=== PATIENT | female | born 1940 | race Caucasian/White ===

== ENCOUNTER 2017-04-01 11:22 | Inpatient (IN) | payer MEDICARE ==
[~2017-04-01] VITALS: Ht 162.6 cm; Wt 62.2 kg
[~2017-04-01 11:22] MED LIST: CALC-881 PO; CHOL100094 PO; DRY EYE BOTH_EYES; FOLI-89 PO; GLUC-180 PO; METR45GE11 TOP; TAMO20TA4 PO
[2017-04-01 11:32] VITALS: BP 132/50; PULSE 82; RESP 23; O2SAT 97
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
--- NOTE | 2017-04-01 12:14 | DRSVH ---
PROCEDURE: X-RAY CHEST ONE VIEW, PORTABLE ([id number]) INDICATIONS: CHEST PAIN TECHNIQUE: One view of the chest was acquired. COMPARISON: None. FINDINGS: Surgical changes and devices: Bilateral peripherally calcified breast implants are present. Lungs and pleura: No definite pulmonary consolidation is evident. Interstitial prominence within the infrahilar regions may be exaggerated by overlying breast tissue. Mild scar versus atelectasis with in the costophrenic angles may be present bilaterally. Mediastinum: Mediastinal contours appear normal. Heart size is normal. Bones and chest wall: No suspicious bony lesions. Overlying soft tissues appear unremarkable. IMPRESSION: No definite pneumonia or overt heart failure. Infrahilar interstitial prominence probabl y is related to chronic lung changes or scarring. Dictated by: Fransisco Bui M.D. on 04/01/2017 at 10:51 Approved by: Fransisco Bui M.D. on 04/01/2017 at 11:10
[2017-04-01 12:17] LABS: BASOPHILS % (AUTO) 0.7 % (0-3); EOSINOPHILS % (AUTO) 0.9 % (0-5); MONOCYTES % (AUTO) 12.3 % (4-12); Mean Corpuscular Hemoglobin 33.4 pg (27.0-35.0); NEUTROPHILS % (AUTO) 63.8 % (40-74); Platelet Count 191 bil/L (150-400)
[2017-04-01 12:33] VITALS: BP 110/63; PULSE 79; RESP 12; O2SAT 96
[2017-04-01] MEDS ORDERED: GLUC100016 PO (12:41)
[2017-04-01] MEDS ORDERED: CA C1TAB83 PO (12:41)
[2017-04-01] MEDS ORDERED: TURM500C7 PO (12:41)
[2017-04-01] MEDS ORDERED: MULT1CAP33 PO (12:41)
[2017-04-01 12:42] LABS: TROPONIN T 0.01 ug/L (0.0-0.011)
[2017-04-01 12:53] LABS: Magnesium 1.9 mg/dL (1.6-2.6)
[2017-04-01] MEDS ORDERED: Alum-Mag Hydrox-Simeth 30 mL Suspension PO PRN (13:45)
[2017-04-01] MEDS ORDERED: Ondansetron 2 mg/mL 2 mL Inj IVPUSH PRN (13:45)
[2017-04-01] MEDS ORDERED: Polyethylene Glycol (PEG) 17 Gm Powder PO PRN (13:45)
--- NOTE | 2017-04-01 13:45 | DRSVH ---
PROCEDURE: US VENOUS LEG DUPLEX BILATERAL INDICATIONS: swelling ro DVT TECHNIQUE: Real-time imaging, as well as color and pulse Doppler interrogation, were performed of the deep veins of both legs from the inguinal ligament to the popliteal fossa. COMPARISON: None. FINDINGS: The deep veins are normally compressible, and free of intraluminal thrombus. Color and pu lse Doppler demonstrate normal phasic intravascular flow. There is normal augmentation response to d istal compression maneuver. IMPRESSION: No DVT in the lower extremities bilaterally. Dictated by: Migue Morales M.D. on 04/01/2017 at 13:43 Approved by: Migue Morales M.D. on 04/01/2017 at 13:43
--- NOTE | 2017-04-01 14:00 | NUR ---
Evaluation completed. Please go to "Notes" then click on "Assessments and Notes" (bottom left corner of screen). Then select appropriate discipline tab on top of screen.
--- NOTE | 2017-04-01 14:01 | DRSVH ---
PROCEDURE: CT BRAIN WITHOUT CONTRAST ([id number]) INDICATIONS: R arm numbness TECHNIQUE: Noncontrast 4.5 mm thick angled axial sections acquired from the foramen magnum to the vertex, with c oronal reformats. COMPARISON: None. FINDINGS: Image quality: Excellent. CSF spaces: Basal cisterns are patent. No extra-axial fluid collections. The ventricles are symmet evelyn in size and shape. Brain: No intracranial bleeds or masses. There is cerebral volume loss for age, with resultant vent ricular and sulcal prominence. There are periventricular and deep white matter chronic small vessel ischemic changes. There is intracranial internal carotid artery atherosclerosis. Skull and face: Calvarium and visualized facial bones appear intact, without suspicious lesions. Sinuses: Visualized sinuses and mastoids are clear. IMPRESSION: 1. No acute intracranial process. 2. Moderate atrophy and chronic microvascular ischemic changes. Dictated by: Dionna Cheng M.D. on 04/01/2017 at 13:59 Approved by: Dionna Cheng M.D. on 04/01/2017 at 14:00
--- NOTE | 2017-04-01 14:11 | PCM.HPMED ---
Subjective Date of Service April 01, 2017 Primary Provider: Admitting Physician: Primary Care Physician: Svetlana Boswell PA-C Attending Physician: Admit Status: From the Emergency Department Chief Complaint: R arm numbness History of Present Illness: 77 yo female with a sig hx of breast CA presenting to ER wiht c/o R arm numbness that recurred this AM. Also with cp htat began yesterday lasting approximately 15 min with reported some rapid heart beats last evening which awoke her and resolved with deep breathing but this AM began to feel some R arm numbness while driving. Also noted some lightheadeness but denies sob/f/c/ recent illness/sig anxiety/stress. no previous similar sx - denies acute weakness or hx of CVA. denies afib or other DVT/VTE hx. denies illicit drug use, current tobacco use. Family history significant for brother and mother with atrial fibrillation. Currently reports symptoms of numbness progressing to her right shoulder, no dysarthria noted In the ER, a CT was ordered, pts NIHSS score was found to be 1 Review of Systems: complete ROS unremarkable except as listed in HPI Allergies Coded Allergies: No Known Allergies (Verified Allergy, Unknown, 04/01/17) Home Medications Ca Carbonate/Vitamin D3/Vit K (Calcium + D Soft Chewable Tab) 1 Each Tab.chew 1 EACH PO DAILY Glucosamine Sulfate 2Kcl (Glucosamine) 1,000 Mg Tablet 1,000 MG PO DAILY Multivitamin (Multivitamins) 1 Each Capsule 1 EACH PO DAILY Tamoxifen Citrate (Tamoxifen Citrate) 20 Mg Tablet 20 MG PO DAILY Turmeric Root Extract (Turmeric) 500 Mg Capsule 500 MG PO DAILY PMH R Breast CA - T1N1M0 stage IIA invasive ductal CA - status post breast conservative surgery, adjuvant radiation therapy - completed in 2011 with no recurrence, on tamoxifen therapy Surgical History S /P right-sided breast conservative therapy Status post bilateral breast implants Hysterectomy 1974 History of cataract removal both eyes History of exploratory laparotomy with appendectomy at time of an ectopic Tonsillectomy Re-eval lipoma removal of the right arm Family History Brother and mother with history of atrial fibrillation No family history of diabetes, heart attacks Mother with CVA in late 80s Social History Hx Alcohol Use: Yes (2/DAY) Hx Substance Use: No Hx Tobacco Use: No (quit 11 years ago) Smoking Status: Former Smoker ( quit 2000) Exam Vital Signs Vital Sign - Last Date Time Temp Pulse Resp B/P Pulse Ox O2 Delivery O2 Flow Rate FiO2 04/01/17 12:33 79 12 110/63 96 Room Air 04/01/17 11:32 36.6 Exam Gen.: No acute distress, alert and oriented, pleasant HEENT: Normocephalic/atraumatic, pupils equal round react to light and accommodation,EOMI, Anicteric sclera, No mucosal ulcerations Neck: No JVD, lymphadenopathy, no thyromegaly Cardiovascular: No rubs clicks murmurs or gallops, regular rate Respiratory: Clear to auscultation bilaterally no wheezes rales or rhonchi, good historian effort GI: Soft, nontender to palpation no masses no hepatosplenomegaly noted no peritoneal signs or rebound tenderness. Extremities: No clubbing cyanosis or edema, warm, sensation intact Neurologic, muscle strength 5 out of 5 in upper and lower extremities bilaterally, creatinine nerves 2-12 grossly intact, DTRs 2+ at patellar and brachial radialis and bicipital, sensation decreased at right arm and right shoulder, normal speech Psych: Mood appropriate, affect appropriate, no tangential thought or speech Lab and Diagnostics Result Diagram: 04/01/17 1150 X-Rays, CTs and MRIs Chest x-ray IMPRESSION: No definite pneumonia or overt heart failure. Infrahilar interstitial prominence probably is related to chronic lung changes or scarring. Dictated by: Fransisco Bui M.D. on 04/01/2017 at 10:51 12-lead ECG Normal sinus rhythm, no acute ischemic changes, possible Q-wave in V1 and V2, normal intervals Cardiac Echo Impressions Echo pending Assessment & Plan 77-year-old female with history of ductal carcinoma breast cancer now in remission presenting with ongoing symptoms of acute CVA Acute CVA - sx have been present for >4.5 hrs -Echo -MRI with and without contrast -carotid doppler -Follow up CT from ER -Repeat EKG, check lipid profile/a1c -neuochecks -Admit to telemetry, monitor blood pressure - unlikely given low baseline blood pressure but allow permissive hypertension -Start atorvastatin 10mg and if CT head neg for ICH, start aspirin 324mg -PT/OT consulted for evaluation treatment Chronic medical conditions History of breast cancer status post lumpectomy and radiation, in remission -Consider repeat CT chest if not done recently for surveillance given above CVA -Continue tamoxifen Osteoarthritis-hold home glucosamine Pt verified desire for DNR status after discussion with pt/daughter Pain Evaluation: Adequate Pain Control GI Prophylaxis: Not indicated VTE Prophylaxis: Sub-Q Enoxaparin Resuscitation Status: DNR/DNI:Do Not Resuscitate/Intubate Time spent 40 minutes spent with evaluation and management including admission. Greater than 50% time was spent [id number] counseling Attending Statement observation admission status Chago Bhakta DO April 01, 2017 12:50
[2017-04-01 14:30] VITALS: BP 109/48; PULSE 91; RESP 18; O2SAT 99
[2017-04-01 15:25] VITALS: PULSE 89
--- NOTE | 2017-04-01 16:03 | NUR ---
Case Management: IMM explained to patient at 1550, all questions answered. Signed original placed in chart, copy given to patient. Jeanine Reeves RN
[2017-04-01 16:05] VITALS: BP 110/73; PULSE 69; RESP 16; O2SAT 96
--- NOTE | 2017-04-01 18:02 | NUR ---
Admit note- Received patient via w/c after CT scan. Patient is alert and oriented. Denies any further tingling or change in sensation in right arm. Steady gait. No neuro deficits noted. Tele-sinus rhythm. Oriented patient to room,call light, tele, etc.
--- NOTE | 2017-04-01 18:04 | DRSVH ---
PROCEDURE: MRI STROKE PROTOCOL ([id number]) Pre- and post-contrast brain MRI, non-contrast brain MR angiogram, pre- and postcontrast neck MR apurva ogram INDICATIONS: RUE numbness TECHNIQUE: Brain: Noncontrast axial T1 spin echo, axial T2 fast spin echo, sagittal and axial FLAIR, coronal T2 fast spin echo, axial gradient echo, axial diffusion and ADC through the brain. After the administr ation of contrast, axial 3D VIBE of the cranial vasculature and brain. Brain MRA: Non-contrast 3-D time of flight MR angiogram, with multiple nkutwgd-ktacdbyhh-npozeobvau (MIP) reformats performed. Neck MRA: Axial and sagittal TruFISP through the neck. Coronal dynamic MR angiogram during administ ration of contrast in the arterial and venous phases, with 3-dimenstional aeivzoy-bueitrebk-krczeinxq n (MIP) reformats constructed from subtraction images. COMPARISON: None. FINDINGS: Image quality: Excellent. BRAIN: CSF spaces: Ventricles are normal in size and shape. Basal cisterns are patent. No extra-axial flu id collections. Brain: No intracranial bleeds or mass effects. Dillon-white matter interface is normal. Diffusion we ighted images show no acute ischemic insults. Brainstem appears normal. Normal intravascular flow v oids are present. No abnormal intracranial enhancement. 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 Skull and face: Calvarial marrow signal is normal. Orbits appear normal. Sinuses: Sinuses and mastoids are clear. BRAIN MR ANGIOGRAM: Anterior circulation: Intracranial internal carotid arteries are normal in size and enhancement. The A1 segment of the right anterior cerebral artery is atrophic which is likely a congenital finding. O therwise flow within the paired anterior cerebral arteries is normal and symmetric. The flow within the middle cerebral arteries is normal and symmetric. The anterior communicating artery is seen. No stenoses, occlusions, or aneurysms. Posterior circulation: The visualized portions of the vertebral arteries demonstrate normal caliber, and join to form a normal appearing basilar artery. The flow within the posterior cerebral arteries is normal and symmetric. No stenoses, occlusions, or aneurysms. Bilateral posterior communicating arteries left greater than right are present. NECK MR ANGIOGRAM: Carotids: The origins of the common carotid arteries appear patent. The calibers and courses of b oth common carotid arteries are normal. The left bifurcation region is normal. There is narrowing of the right carotid bulb which is partially obscured by artifact and measures approximately 70%. Otherw ise the internal carotid arteries demonstrate normal course and caliber. Posterior circulation: The origins of the vertebral arteries appear patent. More superior portions of both vertebral arteries demonstrate normal course and caliber, and join to form a normal appearing basilar artery. Miscellaneous: Subclavian arteries appear patent. Pre-contrast images through the neck show no soft tissue abnormalities. There is possible dilatation of the descending thoracic aorta and aortic arch . IMPRESSION: BRAIN MRI: No acute findings in the brain. No evidence of stroke. 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 Other knowles normal brain angiogram. NECK MR ANGIOGRAM: 1. Narrowing in the right carotid bulb of approximately 70% poorly seen due to artifact. Recommend ca rotid ultrasound with attention to this site. If carotid ultrasound is unclear, a CT angiogram of the neck with and without contrast performed on a nonemergent basis will be needed. 2. Partially visualized enlargement of the ascending thoracic aorta and aortic arch. Recommend a CT a ngiogram of the chest which may be performed a nonemergent basis. The estimate of stenosis included in the report of the imaging study was calculated using the NASCET method Dictated by: Baldo Yin M.D. on 04/01/2017 at 17:42 Approved by: Baldo Yin M.D. on 04/01/2017 at 17:57
--- NOTE | 2017-04-01 18:48 | DRSVH ---
PROCEDURE: US BILATERAL DUPLEX DOPPLER IMAGING OF THE CAROTIDS ([id number]) INDICATIONS: cva TECHNIQUE: Color and pulse Doppler interrogation was performed of both carotid systems, with image documentation and velocity measurements. COMPARISON: [facility], US, US VENOUS LEG DPLX BILAT, 04/01/2017, 12:58. FINDINGS: All stenosis calculations are based on NASCET criteria. Right side: Brachial blood pressure: The and 10/73 mm Hg. Common Carotid Artery(Distal) PSV: 50.50 cm/s Internal Carotid Artery PSV- Proximal: 137.50 cm/s Mid-lon.80 cm/s Distal: 72.70 cm/s EDV - Proximal: 42.30 cm/s Mid-lon.50 cm/s Distal: 16.70 cm/s External Carotid Artery(Proximal) PSV: 59.80 cm/s ICA/CCA PSV ratio: 2.7 Dillon scale imaging description: The proximal right internal carotid artery is tortuous. There is mild /moderate atheromatous disease. Percent internal carotid artery stenosis: 50-69% . Vertebral artery: Flow direction is antegrade. Left side: Brachial blood pressure: 110/63 mm Hg. Common Carotid Artery(Distal) PSV: 42.70 cm/s Internal Carotid Artery PSV - Proximal: 74 cm/s Mid-lon.30 cm/s Distal: 89.40 cm/s EDV - Proximal: 17.70 cm/s Mid-lon.70 cm/s Distal: 29.60 cm/s External Carotid Artery(Proximal) PSV: 50.20 cm/s ICA/CCA PSV ratio: 2.1 Dillon scale imaging description: Moderate atheromatous plaque. Percent internal carotid artery stenosis: Less than 50 % stenosis . Vertebral artery: Flow direction is antegrade. IMPRESSION: 1. By velocity criteria there is a 50-69% stenosis in the proximal left internal carotid artery. Landry wilber, this is more likely due to tortuosity of the vessel then due to a true stenosis. A CT angiogram could confirm the patency of this vessel if needed. 2. No hemodynamic significant stenosis in the bilateral common carotid arteries or left internal hammond tid artery. Dictated by: Baldo Yin M.D. on 04/01/2017 at 18:34 Approved by: Baldo Yin M.D. on 04/01/2017 at 18:40
[2017-04-01 21:41] VITALS: BP 112/74; PULSE 84; RESP 16; O2SAT 99
[2017-04-02 00:54] VITALS: BP 120/81; PULSE 82; RESP 18; O2SAT 96
--- NOTE | 2017-04-02 05:13 | NUR ---
NEURO Throughout shift, no s/sx of neurologic deficit. Upper entertainment & media correspondent strengths equal and strong. Lower strengths equal and strong. PERRLA. No sensory deficit noted through assessment or reported from patient. Pt has had no complaints during this shift. Hourly rounding.
[2017-04-02 05:30] VITALS: PULSE 86
[2017-04-02 06:05] VITALS: BP 115/80; PULSE 72; RESP 16; O2SAT 95
[2017-04-02 06:07] LABS: BASOPHILS % (AUTO) 1.6 % (0-3); EOSINOPHILS % (AUTO) 1.8 % (0-5); MONOCYTES % (AUTO) 16.4 % (4-12); Mean Corpuscular Hemoglobin 33.4 pg (27.0-35.0); Mean Corpuscular Volume 99.7 fL (81-100); NEUTROPHILS % (AUTO) 45.4 % (40-74); Platelet Count 178 bil/L (150-400)
[2017-04-02 07:43] VITALS: BP 119/64; PULSE 73; RESP 12; O2SAT 97
[2017-04-02 08:00] VITALS: PULSE 72
[2017-04-02] MEDS: Fluticasone 0.05% 15 Spray/2 Gm 16 Gm Nasal Spray NASAL SCH ×2 (08:30→09:48)
--- NOTE | 2017-04-02 08:44 | NUR ---
Evaluation completed. Please go to "Notes" then click on "Assessments and Notes" (bottom left corner of screen). Then select appropriate discipline tab on top of screen.
--- NOTE | 2017-04-02 11:06 | PCM.DC.MED ---
Discharge Summary Date of Service April 02, 2017 Dates of Hospitalization Date of Hospital Admission April 01, 2017 at 12:56 Date of Discharge: April 02, 2017 Providers: Admitting Physician: Chago Bhakta DO Primary Care Physician: Svetlana Boswell PA-C Attending Physician: Chago Bhakta DO Procedures XRay, CTs & MRIs Chest x-ray IMPRESSION: No definite pneumonia or overt heart failure. Infrahilar interstitial prominence probably is related to chronic lung changes or scarring. Dictated by: Fransisco Bui M.D. on 04/01/2017 at 10:51 MRI brain: IMPRESSION: BRAIN MRI: No acute findings in the brain. No evidence of stroke. 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 Otherwise normal brain angiogram. NECK MR ANGIOGRAM: 1. Narrowing in the right carotid bulb of approximately 70% poorly seen due to artifact. Recommend carotid ultrasound with attention to this site. If carotid ultrasound is unclear, a CT angiogram of the neck with and without contrast performed on a nonemergent basis will be needed. 2. Partially visualized enlargement of the ascending thoracic aorta and aortic arch. Recommend a CT angiogram of the chest which may be performed a nonemergent basis. The estimate of stenosis included in the report of the imaging study was calculated using the NASCET method Dictated by: Baldo Yin M.D. on 04/01/2017 at 17:42 Approved by: Baldo Yin M.D. on 04/01/2017 at 17:[address]: IMPRESSION: 1. No acute intracranial process. 2. Moderate atrophy and chronic microvascular ischemic changes. U/S Doppler Carotid TECHNIQUE: Color and pulse Doppler interrogation was performed of both carotid systems, with image documentation and velocity measurements. COMPARISON: [facility], US, US VENOUS LEG DPLX BILAT, 04/01/2017, 12 :58. FINDINGS: All stenosis calculations are based on NASCET criteria. Right side: Brachial blood pressure: The and 10/73 mm Hg. Common Carotid Artery(Distal) PSV: 50.50 cm/s Internal Carotid Artery PSV- Proximal: 137.50 cm/s Mid-lon.80 cm/s Distal: 72.70 cm/s EDV - Proximal: 42.30 cm/s Mid-lon.50 cm/s Distal: 16.70 cm/s External Carotid Artery(Proximal) PSV: 59.80 cm/s ICA/CCA PSV ratio: 2.7 Dillon scale imaging description: The proximal right internal carotid artery is tortuous. There is mild/moderate atheromatous disease. Percent internal carotid artery stenosis: 50-69% . Vertebral artery: Flow direction is antegrade. Left side: Brachial blood pressure: 110/63 mm Hg. Common Carotid Artery(Distal) PSV: 42.70 cm/s Internal Carotid Artery PSV - Proximal: 74 cm/s Mid-lon.30 cm/s Distal: 89.40 cm/s EDV - Proximal: 17.70 cm/s Mid-lon.70 cm/s Distal: 29.60 cm/s External Carotid Artery(Proximal) PSV: 50.20 cm/s ICA/CCA PSV ratio: 2.1 Dillon scale imaging description: Moderate atheromatous plaque. Percent internal carotid artery stenosis: Less than 50 % stenosis . Vertebral artery: Flow direction is antegrade. IMPRESSION: 1. By velocity criteria there is a 50-69% stenosis in the proximal left internal carotid artery. However, this is more likely due to tortuosity of the vessel then due to a true stenosis. A CT angiogram could confirm the patency of this vessel if needed. 2. No hemodynamic significant stenosis in the bilateral common carotid arteries or left internal carotid artery. ECG 12 Lead Normal sinus rhythm, no acute ischemic changes, possible Q-wave in V1 and V2, normal intervals Cardiac Echo Impression Echo pending Brief History 77 yo female with a sig hx of breast CA presenting to ER wiht c/o R arm numbness that recurred this AM. Also with cp htat began yesterday lasting approximately 15 min with reported some rapid heart beats last evening which awoke her and resolved with deep breathing but this AM began to feel some R arm numbness while driving. Also noted some lightheadeness but denies sob/f/c/ recent illness/sig anxiety/stress. no previous similar sx - denies acute weakness or hx of CVA. denies afib or other DVT/VTE hx. denies illicit drug use, current tobacco use. Family history significant for brother and mother with atrial fibrillation. Currently reports symptoms of numbness progressing to her right shoulder, no dysarthria noted In the ER, a CT was ordered, pts NIHSS score was found to be 1 Hospital Course 77-year-old female with history of ductal carcinoma breast cancer now in remission presenting with symptoms suggestive of TIA/CVA, no apparent CVA on MRI , Acute CVA - sx have been present for >4.5 hrs - given findings symptoms are less likely from acute CVA may represent persistent TIA, as noted in radiology reports a repeat CT angiogram neck may be considered given the carotid Dopplers mentation of 50-69% stenosis of the proximal left internal carotid artery although is maybe more tortuosity. I would likely only obtains imaging if patient has persistent or recurrent symptoms -Echo, if normal patient will be discharged with PCP follow-up -MRI with and without contrast, no acute evidence of CVA with some minor congenital changes as listed in report -carotid doppler: Per ljujjw-23-31% stenosis in the proximal left internal carotid artery. However, this is more likely due to tortuosity of the vessel then due to a true stenosis -CT head without any evidence of acute injury cranial hemorrhage -Repeat EKG - without evidence of acute ischemia, significant labs included an A1c of 5.3, and LDL of 72 and HDL of 106 -No significant neurologic changes on neuro checks during admission -Continue on atorvastatin 10mg and aspirin 81 mg since a TIA is possible -PT/OT consulted for evaluation treatment during hospitalization Enlargement of the ascending thoracic aorta and aortic arch -As per report may consider repeat CT angiogram the chest on a nonemergent basis in the outpatient setting for follow-up which may also give us surveillance data on her previous history of breast cancer. Per report: NECK MR ANGIOGRAM: 1. Narrowing in the right carotid bulb of approximately 70% poorly seen due to artifact. Recommend carotid ultrasound with attention to this site. If carotid ultrasound is unclear, a CT angiogram of the neck with and without contrast performed on a nonemergent basis will be needed. 2. Partially visualized enlargement of the ascending thoracic aorta and aortic arch. Recommend a CT angiogram of the chest which may be performed a nonemergent ba Chronic medical conditions History of breast cancer status post lumpectomy and radiation, in remissionVA -Continue tamoxifen Continue home glucosamine Pt verified desire for DNR status after discussion with pt/daughter If cardiac echo is normal we will discharge patient with follow-up to Dr. Boswell, PCP Exam Vital Signs (Last) Date Time Temp Pulse Resp B/P Pulse Ox O2 Delivery O2 Flow Rate FiO2 04/02/17 07:43 36.1 73 12 119/64 97 Room Air Exam Gen.: No acute distress, alert and oriented, pleasant HEENT: Normocephalic/atraumatic, pupils equal round react to light and accommodation,EOMI, Anicteric sclera, No mucosal ulcerations Neck: No JVD, lymphadenopathy, no thyromegaly Cardiovascular: No rubs clicks murmurs or gallops, regular rate Respiratory: Clear to auscultation bilaterally no wheezes rales or rhonchi, good historian effort GI: Soft, nontender to palpation no masses no hepatosplenomegaly noted no peritoneal signs or rebound tenderness. Extremities: No clubbing cyanosis or edema, warm, sensation intact Neurologic, muscle strength 5 out of 5 in upper and lower extremities bilaterally, creatinine nerves 2-12 grossly intact, DTRs 2+ at patellar and brachial radialis and bicipital, sensation equal b/l Psych: Mood appropriate, affect appropriate, no tangential thought or speech Test 04/01/17 11:50 04/01/17 11:52 04/02/17 05:55 Magnesium Level 1.9mg/dL (1.6-2.6) Troponin T 0.010ug/L (0.0-0.011) Hemoglobin A1c 5.3% (4.8-5.6) Triglycerides Level 72mg/dL (0-149) Cholesterol Level 193mg/dL (100-199) LDL Cholesterol, Calculated 72.600mg/dL (0-99) VLDL Cholesterol 14.400mg/dL HDL Cholesterol 106mg/dL (>39) Cholesterol/HDL Ratio 1.82 (0.0-4.4) Thyroid Stimulating Hormone (TSH) 2.170uIU/mL (0.450-4.500) White Blood Count 3.8th/mm3 (3.8-10.1) Red Blood Count 3.89mil/mm3 (3.90-5.20) Hemoglobin 13.0g/dL (12.0-15.6) Hematocrit 38.8% (35.0-46.0) Mean Corpuscular Volume 99.7fL (81-100) Mean Corpuscular Hemoglobin 33.4pg (27.0-35.0) Mean Corpuscular Hemoglobin Concent 33.5% (32.0-37.0) Red Cell Distribution Width 13.8% (12.3-15.4) Platelet Count 178bil/L (150-400) Neutrophils (%) (Auto) 45.4% (40-74) Lymphocytes (%) (Auto) 34.5% (14-46) Monocytes (%) (Auto) 16.4% (4-12) Eosinophils (%) (Auto) 1.8% (0-5) Basophils (%) (Auto) 1.6% (0-3) Sodium Level 142mEq/L (134-144) Potassium Level 4.6mEq/L (3.5-5.2) Chloride Level 105mEq/L (97-108) Carbon Dioxide Level 25mmol/L (18-29) Blood Urea Nitrogen 17mg/dL (8-27) Creatinine 0.63mg/dL (0.57-1.00) Estimat Glomerular Filtration Rate 132mL/min (>59) Glucose Level 103mg/dL (60-99) Calcium Level 9.4mg/dL (8.5-10.1) Total Bilirubin 1.1mg/dL (0.0-1.2) Aspartate Amino Transf (AST/SGOT) 15U/L (0-50) Alanine Aminotransferase (ALT/SGPT) 9U/L (0-32) Alkaline Phosphatase 58U/L (25-165) Total Protein 6.0g/dL (6.4-8.4) Albumin 3.9g/dL (3.4-5.0) Discharge Medications Discharge Medications Ca Carbonate/Vitamin D3/Vit K (Calcium + D Soft Chewable Tab) 1 Each Tab.chew 1 EACH PO DAILY (Reported) Glucosamine Sulfate 2Kcl (Glucosamine) 1,000 Mg Tablet 1,000 MG PO DAILY ( Reported) Multivitamin (Multivitamins) 1 Each Capsule 1 EACH PO DAILY (Reported) Tamoxifen Citrate (Tamoxifen Citrate) 20 Mg Tablet 20 MG PO DAILY (Reported) Turmeric Root Extract (Turmeric) 500 Mg Capsule 500 MG PO DAILY (Reported) Followup Plan Disposition: dc if pending cardiac echo is normal Follow-up plan Follow-up Dr. Boswell within 1-2 weeks by calling and make an appointment Discharge Diet: Heart Healthy Discharge Activity: No restrictions Follow-up Provider: Svetlana Boswell PA-C Follow-up with PCP in: 1 week Time spent 45 minutes spent in evaluation and management including discharge. Greater than 50% time was spent [id number] counseling copies to: Svetlana Boswell PA-C, David DO April 02, 2017 11:06
--- NOTE | 2017-04-02 11:28 | DRSVH ---
[facility] [address] [place] [address] Echocardiogram Report Name: PARISA RAUSCH JStudy Date: 04/02/2017 Height: 64 in Hospital Exam Location: [facility] Weight: 134 lb Gender: Female BSA: 1.6 m2 : 1940 Age: 77 yrs BP: 119/64 mmHg History: CVA Performed By: Stephanie Garland Referring Physician: BRUCE GERBER Interpretation Summary The left ventricle is normal in size, wall thickness, and systolic function without any focal wall motion abnormalities. The ejection fraction is estimated to be 60-65%. The right ventricle is mildly dilated. Right ventricular systolic function is borderline reduced. The right ventricular systolic pressure is estimated at 35 mmHg assuming a right atrial pressure of 15 mm Hg. The left atrium grossly appears normal in size. The right atrium grossly appears normal in size. The interatrial septum is intact with no evidence for an atrial septal defect. Injection of contrast documented no interatrial shunt. There is mild aortic regurgitation. There is no other significant valvular heart disease. The aortic root is normal size. The ascending aorta is severely enlarged. Ascending aorta's diameter measures up to 5.[address] angiogram of the chest to further delineate thoracic aorta to see if cardiothoracic consultation is required, which can be done as outpatient. Procedure: A two-dimensional transthoracic echocardiogram with color flow and Doppler was performed. A saline contrast injection was performed to assess for cardiac shunting. The study quality was technically adequate. There is no prior echocardiogram noted for this patient. Patient was in sinus rhythm with ectopic beats. The heart rate varied from 69-72 bpm. Left Ventricle: The left ventricle is normal in size, wall thickness, and systolic function without any focal wall motion abnormalities. There is no thrombus. The ejection fraction is estimated to be 60-65%. Assessment of diastolic parameters indicates normal left ventricular diastolic function and normal filling pressures. Right Ventricle: The right ventricle is mildly dilated. Right ventricular systolic function is borderline reduced. Atria: The left atrium grossly appears normal in size. The right atrium grossly appears normal in size. The interatrial septum is intact with no evidence for an atrial septal defect. Injection of contrast documented no interatrial shunt. Mitral Valve: The mitral valve is normal in structure and function. There is trace mitral regurgitation. Aortic Valve: The aortic valve is trileaflet. The aortic valve is slightly calcified. There is mild aortic regurgitation. Tricuspid Valve: The tricuspid valve is normal. There is mild tricuspid regurgitation. The right ventricular systolic pressure is estimated at 35 mmHg assuming a right atrial pressure of 15 mm Hg. Pulmonic Valve: The pulmonic valve is normal in structure and function. There is trace pulmonic regurgitation. There is no other significant valvular heart disease. Great Vessels: The aortic root is normal size. The ascending aorta is severely enlarged. Ascending aorta's diameter measures up to 5.[address] chest with contrast to further delineate thoracic aorta. The pulmonary artery is normal size. The IVC is dilated (diameter is greater than 2.1 cm) yet it collapses greater than 50% with a sniff. This suggests a right atrial pressure of 8 mm Hg. Pericardium/ Pleura There is an anterior echo-free space consistent with a fat pad. There is no pericardial effusion. There is no pleural effusion. MMode/2D Measurements & Calculations LVIDd: 4.1 cm IVC diam LVOT diam: 2.0 cm LV jeffers. diameter/BSA LVIDs: 2.8 cm : 2.5 cm Ao root diam (cm/m^2): 2.5 FS: 31.7 % IVSd: 0.67 cm asc Aorta Diam LVPWd: 1.1 cm Ao Arch Diam (Prox Trans): 2.9 cm LV sys. diameter/BSA TAPSE (cm/m^2): 1.7 : 1.8 cm Doppler Measurements & Calculations Ao V2 max: 138.3 cm/secMV E max jose luis MV E/A: 1.2 TR max jose luis Ao max P.6 mmHg : 74.3 cm/sec Med Peak E' Jose Luis : 227.7 cm/sec Ao mean P.6 mmHg MV A max jose luis TR max PG LVOT Max Jose Luis : 63.5 cm/sec E/E' med: 10.0 : 20.9 mmHg : 106.5 cm/sec Lat Peak E' Jose Luis PA V2 max : 73.0 cm/sec FLORIDALMA(I,D): 2.9 cm E/E' lat: 9.2 PA mean PG sev ratio: 0.90 E/e' average: 9.6 : 0.96 mmHg MV dec time: 0.24 sec Ao V2 mean LV V1 max PG PA V2 mean : 88.0 cm/sec : 44.5 cm/sec Ao V2 VTI LV V1 VTI: 23.2 cmPA pr(Accel) : 19.9 mmHg FLORIDALMA(V,D): 2.5 cm2 FLORIDALMA indexed to BSA (cm^2/m^2): 1.8 Reading Physician:SRIKANTH
--- NOTE | 2017-04-02 12:09 | PCM.DIMED ---
Discharge Instructions Date of Service April 02, 2017 Dates of Hospitalization April 01, 2017 at 12:56 Discharge Diagnosis Discharge Diagnosis Right arm numbness possibly secondary to TIA versus cervical radiculopathy Palpitations likely secondary to PVCs as noted on telemetry overnight R Breast CA - T1N1M0 stage IIA invasive ductal CA - status post breast conservative surgery, adjuvant radiation therapy - completed in 2011 with no recurrence, on tamoxifen therapy Medication Instructions Started on aspirin 81 mg and atorvastatin 10 mg Test Results XRay, CTs & MRIs Chest x-ray IMPRESSION: No definite pneumonia or overt heart failure. Infrahilar interstitial prominence probably is related to chronic lung changes or scarring. Dictated by: Farnsisco Bui M.D. on 04/01/2017 at 10:51 MRI brain: IMPRESSION: BRAIN MRI: No acute findings in the brain. No evidence of stroke. 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 Otherwise normal brain angiogram. NECK MR ANGIOGRAM: 1. Narrowing in the right carotid bulb of approximately 70% poorly seen due to artifact. Recommend carotid ultrasound with attention to this site. If carotid ultrasound is unclear, a CT angiogram of the neck with and without contrast performed on a nonemergent basis will be needed. 2. Partially visualized enlargement of the ascending thoracic aorta and aortic arch. Recommend a CT angiogram of the chest which may be performed a nonemergent basis. The estimate of stenosis included in the report of the imaging study was calculated using the NASCET method Dictated by: Baldo Yin M.D. on 04/01/2017 at 17:42 Approved by: Baldo Yin M.D. on 04/01/2017 at 17:[address]: IMPRESSION: 1. No acute intracranial process. 2. Moderate atrophy and chronic microvascular ischemic changes. U/S Doppler Carotid TECHNIQUE: Color and pulse Doppler interrogation was performed of both carotid systems, with image documentation and velocity measurements. COMPARISON: [facility], , US VENOUS LEG DPLX BILAT, 04/01/2017, 12 :58. FINDINGS: All stenosis calculations are based on NASCET criteria. Right side: Brachial blood pressure: The and 10/73 mm Hg. Common Carotid Artery(Distal) PSV: 50.50 cm/s Internal Carotid Artery PSV- Proximal: 137.50 cm/s Mid-lon.80 cm/s Distal: 72.70 cm/s EDV - Proximal: 42.30 cm/s Mid-lon.50 cm/s Distal: 16.70 cm/s External Carotid Artery(Proximal) PSV: 59.80 cm/s ICA/CCA PSV ratio: 2.7 Dillon scale imaging description: The proximal right internal carotid artery is tortuous. There is mild/moderate atheromatous disease. Percent internal carotid artery stenosis: 50-69% . Vertebral artery: Flow direction is antegrade. Left side: Brachial blood pressure: 110/63 mm Hg. Common Carotid Artery(Distal) PSV: 42.70 cm/s Internal Carotid Artery PSV - Proximal: 74 cm/s Mid-lon.30 cm/s Distal: 89.40 cm/s EDV - Proximal: 17.70 cm/s Mid-lon.70 cm/s Distal: 29.60 cm/s External Carotid Artery(Proximal) PSV: 50.20 cm/s ICA/CCA PSV ratio: 2.1 Dillon scale imaging description: Moderate atheromatous plaque. Percent internal carotid artery stenosis: Less than 50 % stenosis . Vertebral artery: Flow direction is antegrade. IMPRESSION: 1. By velocity criteria there is a 50-69% stenosis in the proximal left internal carotid artery. However, this is more likely due to tortuosity of the vessel then due to a true stenosis. A CT angiogram could confirm the patency of this vessel if needed. 2. No hemodynamic significant stenosis in the bilateral common carotid arteries or left internal carotid artery. ECG 12 Lead Normal sinus rhythm, no acute ischemic changes, possible Q-wave in V1 and V2, normal intervals Cardiac Echo Impression Echo pending Diet Heart Healthy Activity No restrictions Call your provider Fever or Chills, Shortness of breath, Chest pain, Weakness (unilateral) Patient Instructions Your symptoms of right arm numbness are likely secondary to a transient ischemic attack or mini stroke even though we found no evidence of major acute stroke symptoms on your MRI and CAT scan of the brain. There were some anatomic changes on your ultrasound of your neck vessels that are less likely related to current symptoms but should you have recurrence and or worsening of your numbness or develop new weakness please call your physician or come to the ER as we may want to reimage her neck vessels. Her etiologies of right arm numbness can be from neuropathic symptoms from impingement of the nerves in your neck. I have prescribed you a cholesterol medication as indicated for people who have had a TIA, atorvastatin 10 mg please take this every day along with a baby aspirin as prescribed. Please follow up with primary care physician within one week. Follow-up plan Follow-up Dr. Boswell within 1-2 weeks by calling and make an appointment Follow-up Provider: Svetlana Boswell PA-C Follow-up with PCP in: 1 week Chago Bhakta DO April 02, 2017 12:04
[2017-04-02 12:40] VITALS: BP 108/72; PULSE 74; RESP 12; O2SAT 97
[2017-04-02] MEDS ORDERED: ATOR10TA66 PO (13:32)
[2017-04-02] MEDS ORDERED: ASPI-973 PO (13:32)
--- NOTE | 2017-04-02 14:15 | NUR ---
Discharge Pt discharged in WC with UA and daughter at 1411. All discharge instructions with patient and reviewed, patient verbalized understanding. All belongings with pt. IV dc'd w/o complication.
== END 2017-04-02 14:10 | disposition home or self-care (01) | DRG 69 ==
LOC: SED 11:22 → MOC 12:56 → OBSVTOIN 12:56 → MOC 14:44
PROVIDERS: ADMIT Internal Medicine; ATTEND Internal Medicine
DX: G45.9 Transient cerebral ischemic attack, unspecified (principal); R20.0 Anesthesia of skin; Z87.891 Personal history of nicotine dependence; Z85.3 Personal history of malignant neoplasm of breast